=== PATIENT | male | born 1935 | race Caucasian/White ===

== ENCOUNTER → 2020-04-26 | Outpatient (CLI) | payer MEDICARE, OTHER ==
[2015-05-05 15:11] VITALS: BP 125/69
[~2020-04-26] MED LIST: AMLO10TA8 PO; AMLO1CAP PO; BENA20TA4 PO; Enoxaparin Sodium SQ; FINA5TAB4 PO; METO-269 PO; PRAV10TA2 PO; PRAV40TA2 PO; TAMS0.4C2 PO; TERA10CA3 PO; Warfarin Sodium MC
--- NOTE | 2020-04-26 13:46 | RAD ---
EXAM: Right ankle, 2 views. HISTORY: Pain. COMPARISON: None. FINDINGS: 2 views the right ankle are obtained. There is no fracture, dislocation or subluxation. The ankle mortise is intact. There is no osteochondral lesion. There is degenerative spurring along the anterior talus. There is a tiny plantar spur. IMPRESSION: No acute osseous finding. Electronically signed by: Melissa Walker MD (04/26/2020 1:43 PM) [id number]
== END | disposition home or self-care (01) ==
LOC: RAD 10:30
PROVIDERS: ATTEND Family Medicine
DX: M76.891 Other specified enthesopathies of right lower limb, excluding foot (principal)
CPT/HCPCS: 73600

== ENCOUNTER → 2021-08-03 | Outpatient (CLI) | payer MEDICARE ==
[2015-05-05 15:11] VITALS: BP 125/69
[~2021-08-03] MED LIST changes: +AMLO-187 PO; -AMLO10TA8 PO; +REGADENOSON 0.4 MG/5 ML DISP.SYRIN. IV ONE
--- NOTE | 2021-08-03 10:26 | CARD ---
MR#: [id number] Date of Study: 08/03/2021 Ordering Physician: JOSE ANGEL ESPANA, Referring Physician: JOSE ANGEL ESPANA Tech: Liudmila Sanchez [facility] APPROVED REPORT EXAM: Two-dimensional and M-mode echocardiogram with Doppler and color Doppler. Other Information Quality : Average INDICATION Atrial Fibrillation RISK FACTORS Hypertension 2D DIMENSIONS RVDd4.4 (2.9-3.5cm)Left Atrium(2D)3.5 (1.6-4.0cm) IVSd1.2 (0.7-1.1cm)Aortic Root(2D)3.7 (2.0-3.7cm) LVDd3.4 (3.9-5.9cm)LVOT Diameter2.2 (1.8-2.4cm) PWd1.2 (0.7-1.1cm)LVDs2.2 (2.5-4.0cm) FS (%) 37.1 %SV32.9 ml Aortic Valve AoV Peak Gagan.95.0cm/sAoV VTI23.7cm AO Peak GR.3.6mmHgLVOT Peak Gagan.79.2cm/s AO Mean GR.2mmHgAVA (VMAX)3.06cm2 Mitral Valve MV E Znrzhjpa86.8cm/sMV DECEL [id number] MV A Qondsoru92.2cm/sE/A Ratio1.1 Pulmonary Valve PV Peak Nhusjpbu25.3cm/s Tricuspid Valve TR P. Bvnwcgqs108es/sTR Peak Gr.27mmHg LEFT VENTRICLE The left ventricle is normal size. There is mild concentric left ventricular hypertrophy. The left ve ntricular systolic function is normal. LV ejection fraction is 55 to 60%. There is normal LV segmenta l wall motion. The left ventricular diastolic function and filling is normal for age. RIGHT VENTRICLE The right ventricle is normal size. There is normal right ventricular wall thickness. The right ventr icular systolic function is normal. ATRIA The left atrium size is normal. The right atrium size is normal. The interatrial septum is intact wit h no evidence for an atrial septal defect or patent foramen ovale as noted on 2-D or Doppler imaging. AORTIC VALVE The aortic valve is normal in structure and function. Doppler and Color Flow revealed trace aortic re gurgitation. There is no significant aortic valvular stenosis. MITRAL VALVE The mitral valve is normal in structure and function. There is no evidence of mitral valve prolapse. There is no mitral valve stenosis. Doppler and Color-flow revealed mild mitral regurgitation. TRICUSPID VALVE The tricuspid valve is normal in structure and function. Doppler and Color Flow revealed mild tricusp id regurgitation. Estimated PAP 30 mmHg. There is no tricuspid valve stenosis. PULMONIC VALVE The pulmonary valve is normal in structure and function. Doppler and Color Flow revealed mild pulmoni c valvular regurgitation. GREAT VESSELS The aortic root is normal in size. The ascending aorta is normal in size. The IVC is normal in size a nd collapses >50% with inspiration. PERICARDIAL EFFUSION There is no evidence of significant pericardial effusion. Critical Notification Critical Value: No <Conclusion> The left ventricle is normal size. The left ventricular systolic function is normal. LV ejection fraction is 55 to 60%. There is mild concentric left ventricular hypertrophy. Doppler and Color Flow revealed trace aortic regurgitation. There is no significant aortic valvular stenosis. Doppler and Color-flow revealed mild mitral regurgitation. Doppler and Color Flow revealed mild tricuspid regurgitation. Estimated PAP 30 mmHg. Signed by : Nishant Kaur MD Electronically Approved : 08/03/2021 10:26:04
--- NOTE | 2021-08-04 16:19 | RAD ---
MR#: [id number] Date of Study: 08/03/2021 Ordering Physician: JOSE ANGEL ESPANA, Referring Physician: ANGELICA VERGARA Tech: TISHA Malagon APPROVED REPORT Test Type: Pharmacological Stress Nurse/Tech: Jeanne Funez R.N. Test Indications: paroxysmal atrilal fib Cardiac History: high chol, htn afib, Medications: See Electronic Medical Record Medical History: See Electronic Medical Record Resting ECG: SB Resting Heart Rate: 49 bpm Resting Blood Pressure: 164/75mmHg Pretest Chest Pain: No chest pain Nurse/Tech Notes lungs cta, heart tones regular Consent: The procedure was explained to the patient in lay terms. Informed consent was witnessed. Adams eout was entered into [employer]. History and Stress Test performed by TISHA Malagon Pharm. Details Pharmacologic stress testing was performed using 0.4mg per 5ml of regadenoson given intravenously ove r 7-10 seconds. Stress Symptoms No chest pain or symptoms. POST EXERCISE Reason for Termination: Infusion complete Max HR: 82 bpm Max Blood Pressure: 172/80mmHg Chest Pain: No. Arrhythmia: No. ST Change: No. INTERPRETATION Stress EKG Conclusion: The resting EKG shows a sinus bradycardia with nonspecific ST-T wave changes. The stress EKG shows no significant changes from baseline. No EKG evidence of stress-induced ischemia. Imaging Protocol IMAGE PROTOCOL: Rest Tc-99m/stress Tc-99m 1 day Rest: Stress: Viability: Radiopharm.Tc99m JnoodfwuoVr24p Sestamibi Dose10.5mCi 33mCi Duration 15min. 13min. Img Date 08/03/2021 08/03/2021 Inj-Img [id number]. 60min. Rest Admin Site:IV - Right WristAdministrator:RT Chelsie (R)(N) Stress Admin Site: IV - Right WristAdministrator: TISHA Malagon STRESS DATA End Diast. Vol.70.0mlLVEDV index BSA36.0ml End Syst. Vol.16.0mlLVESV index BSA8.0ml Myocardial Slgx130.0gEject. Rbdyahdm18.0% Stress Scores Regional WT1.00Summed WT3.00 Regional WM0.00Summed WM0.00 LV Perfusion The stress scans show no significant defects. The rest scans show no significant defects. Nuclear imaging shows no reversible ischemia or infarct. Wall Motion Normal LV systolic function with no regional wall motion abnormalities and an ejection fraction of gr eater than 70%. LV Perf. Quant 17 Seg. SSS0.00 17 Seg. SRS0.00 17 Seg. SDS0.00 Stress Defect Extent (% LAD)0.00Rest Defect Extent (% LAD)0.00Rev. Defect Extent (% LAD)0.00 Stress Defect Extent (% LCX) 0.00Rest Defect Extent (% LCX)0.00Rev. Defect Extent (% LCX)0.00 Stress Defect Extent (% RCA)0.00Rest Defect Extent (% RCA)0.00Rev. Defect Extent (% RCA)0.00 Stress Defect Extent (% SCOOTER)0.00Rest Defect Extent (% SCOOTER)0.00Rev. Defect Extent (% SCOOTER)0.00 Conclusion 1. No EKG evidence of stress-induced ischemia. 2. Nuclear imaging shows no reversible ischemia or infarct. 3. Normal left ventricular systolic function with an ejection fraction of greater than 70%. 4. Low risk Lexiscan nuclear stress test. Signed by : Nishant Kaur MD Electronically Approved : 08/04/2021 16:19:21
== END ==
LOC: ECHO 07:25
PROVIDERS: ATTEND Internal Medicine Cardiovascular Disease
DX: I08.8 Other rheumatic multiple valve diseases (principal); I11.9 Hypertensive heart disease without heart failure; I48.0 Paroxysmal atrial fibrillation
CPT/HCPCS: 78452; 93017; 93306; A9500; J2785

== ENCOUNTER → 2022-03-16 | Outpatient (CLI) | payer MEDICARE ==
[2015-05-05 15:11] VITALS: BP 125/69
[~2022-03-16] MED LIST changes: -BENA20TA4 PO; +BENA20TA84 PO; -REGADENOSON 0.4 MG/5 ML DISP.SYRIN. IV ONE
--- NOTE | 2022-03-16 10:16 | RAD ---
EXAM: Head CT without contrast. HISTORY: Memory loss. TECHNIQUE: Computed tomographic images of the head were obtained without contrast. *One or more of the following individualized dose reduction techniques were utilized for this examina tion: 1. Automated exposure control. 2. Adjustment of the mA and/or kV according to patient size. 3. Use of iterative reconstruction technique. COMPARISON: None. FINDINGS: There is no acute or subacute extra-axial or intraparenchymal hemorrhage. There is no mass effect or midline shift. There is no hydrocephalus. There are areas of decreased attenuation within the cerebral white matter, nonspecific and likely rel ated to chronic small vessel disease. There is paranasal sinus mucosal thickening. There is also left maxillary sinus wall thickening due t o chronic sinusitis. The mastoid air cells are clear. There is evidence of left lens surgery. There i s no suspicious calvarial lesion. IMPRESSION: 1. No acute intracranial finding. MRI is more sensitive for acute infarction. 2. Bilateral cerebral white matter changes, likely due to chronic small vessel disease. Electronically signed by: Melissa Walker MD (03/16/2022 10:14 AM) [id number]
== END ==
LOC: CT 09:09
PROVIDERS: ATTEND Family Medicine
DX: R90.82 White matter disease, unspecified (principal); J34.89 Other specified disorders of nose and nasal sinuses; R41.3 Other amnesia
CPT/HCPCS: 70450